=== PATIENT | male | born 1985 | race Caucasian/White ===

== ENCOUNTER 2017-08-07 00:21 | Inpatient (IN) | payer MEDICAID ==
[~2017-08-07] VITALS: Ht 177.8 cm; Wt 83.7 kg
[2017-08-07 03:51] VITALS: BP 119/74
[2017-08-07] MEDS ORDERED: INFLUENZA VIRUS VACCINE QVS 2017-18 (3YR+)/PF 60 MCG/0.5 ML SYRINGE IM ONE (04:30)
[2017-08-07 08:39] LABS: BASOPHILS % (AUTO) 0.5 % (0.0-2.0); EOSINOPHILS % (AUTO) 1.1 % (1.0-6.0); HEMATOCRIT 38.4 % (41-53); HEMOGLOBIN 13.2 g/dL (13.5-17.5); LYMPHOCYTES # (AUTO) 2.2 K/uL (1.0-4.8); MEAN CORPUSCULAR HEMOGLOBIN 30.2 pg (26.0-34.0); MEAN CORPUSCULAR HGB CONC 34.3 G/dL (31.0-37.0); MEAN CORPUSCULAR VOLUME 88 fL (80-100); MONOCYTES # (AUTO) 0.5 K/uL (0.1-1.0); MONOCYTES % (AUTO) 7.6 % (2.0-9.0); NEUTROPHILS # (AUTO) 3.2 K/uL (1.8-7.7); NEUTROPHILS % (AUTO) 53.8 % (40.0-70.0); PLATELET COUNT (AUTO) 160 K/uL (150-450); RED BLOOD CELL COUNT(AUTO) 4.37 MIL/uL (4.50-5.90); WHITE BLOOD COUNT (AUTO) 5.9 K/uL (4.5-11.0)
[2017-08-07 08:56] VITALS: BP 108/48
[2017-08-07 09:32] LABS: ALANINE AMINOTRANSFERASE 29 U/L (12-78); ALBUMIN 3.5 g/dL (3.4-5.0); ANION GAP 6 mmol/L (8-16); ASPARTATE AMINOTRANSFERASE 25 U/L (15-37); BILIRUBIN,TOTAL 0.5 mg/dL (0.1-1.0); CALCIUM, TOTAL 8.8 mg/dL (8.8-10.5); CARBON DIOXIDE 29 mmol/L (22-29); CHLORIDE 104 mmol/L (98-107); CHOL/HDL RATIO 2.4 (4.2-7.3); CREATININE 0.83 mg/dL (0.60-1.30); GLOMERULAR FILTR. RATE CALC > 60 mL/min (>60); POTASSIUM 3.6 mmol/L (3.5-5.1); SODIUM SERUM 139 mmol/L (136-145); THYROID STIMULATING HORMONE 1.34 uIU/mL (0.36-3.74); TOTAL PROTEIN, SERUM 6.4 g/dL (6.4-8.2); UREA NITROGEN, BLOOD 18 mg/dL (7-18)
[2017-08-07 16:03] VITALS: BP 111/64
[2017-08-07] MEDS: HALOPERIDOL 5 MG TABLET PO PRN (16:06)
[2017-08-07] MEDS: PERPHENAZINE 4 MG TABLET PO SCH (16:06)
[2017-08-07] MEDS: DIVALPROEX SODIUM 500 MG DR TABLET PO SCH (16:06)
[2017-08-08 01:00] VITALS: BP 119/69
[2017-08-08 08:27] VITALS: BP 111/67
[2017-08-08] MEDS: PERPHENAZINE 4 MG TABLET PO SCH ×2 (08:31→16:02)
[2017-08-08] MEDS: DIVALPROEX SODIUM 500 MG DR TABLET PO SCH ×2 (08:32→16:02)
[2017-08-08] MEDS: SERTRALINE HCL 50 MG TABLET PO SCH (08:32)
[2017-08-08] MEDS: LORazepam 1 MG TABLET PO PRN (08:32)
[2017-08-08] MEDS: HALOPERIDOL 5 MG TABLET PO PRN ×2 (12:25→16:26)
[2017-08-08 16:27] VITALS: BP 111/72
[2017-08-09 00:53] VITALS: BP 130/65
[2017-08-09 08:07] VITALS: BP 107/60
[2017-08-09] MEDS: SERTRALINE HCL 50 MG TABLET PO SCH (08:34)
[2017-08-09] MEDS: PERPHENAZINE 4 MG TABLET PO SCH ×2 (08:34→16:31)
[2017-08-09] MEDS: DIVALPROEX SODIUM 500 MG DR TABLET PO SCH ×2 (08:34→16:31)
[2017-08-09] MEDS: HALOPERIDOL 5 MG TABLET PO PRN (14:47)
[2017-08-09 16:01] VITALS: BP 101/61
[2017-08-09] MEDS: LORazepam 1 MG TABLET PO PRN (21:19)
[2017-08-10 01:45] VITALS: BP 113/67
[2017-08-10] MEDS: PERPHENAZINE 4 MG TABLET PO SCH ×2 (08:17→16:02)
[2017-08-10] MEDS: DIVALPROEX SODIUM 500 MG DR TABLET PO SCH ×2 (08:17→16:02)
[2017-08-10] MEDS: SERTRALINE HCL 50 MG TABLET PO SCH (08:17)
[2017-08-10 08:29] VITALS: BP 116/60
[2017-08-10] MEDS: LORazepam 1 MG TABLET PO PRN ×2 (08:29→14:42)
[2017-08-10 16:30] VITALS: BP 115/71
[2017-08-10] MEDS: ZOLPIDEM TARTRATE 10 MG TABLET PO PRN (20:30)
[2017-08-10] MEDS: HALOPERIDOL 5 MG TABLET PO PRN (21:48)
[2017-08-11 00:39] VITALS: BP 112/72
[2017-08-11 08:19] VITALS: BP 114/68
[2017-08-11] MEDS: PERPHENAZINE 4 MG TABLET PO SCH ×2 (08:41→16:16)
[2017-08-11] MEDS: SERTRALINE HCL 50 MG TABLET PO SCH (08:41)
[2017-08-11] MEDS: DIVALPROEX SODIUM 500 MG DR TABLET PO SCH ×2 (08:41→16:16)
[2017-08-11] MEDS ORDERED: CloNIDine HCL 0.1 MG TABLET PO PRN (09:15)
[2017-08-11] MEDS ORDERED: MAG HYDROX/AL HYDROX/SIMETH ES 30 ML SUSPENSION UDCUP PO PRN (09:15)
[2017-08-11] MEDS ORDERED: ONDANSETRON HCL 4 MG TABLET PO PRN (09:15)
[2017-08-11] MEDS ORDERED: MAGNESIUM HYDROXIDE SUSPENSION 30 ML UDCUP PO PRN (09:15)
[2017-08-11] MEDS ORDERED: BACITRACIN 28.4 GM OINTMENT TP PRN (09:15)
[2017-08-11] MEDS ORDERED: LOPERAMIDE HCL 2 MG CAPSULE PO PRN (09:15)
[2017-08-11] MEDS ORDERED: ALBUTEROL SULFATE HFA 90 MCG/PUFF 8 GM INHALER IH PRN (09:15)
[2017-08-11] MEDS ORDERED: ACETAMINOPHEN 325 MG TABLET PO PRN (09:15)
[2017-08-11] MEDS ORDERED: IBUPROFEN 600 MG TABLET PO PRN (09:15)
[2017-08-11] MEDS ORDERED: BENZOCAINE/MENTHOL LOZENGE MM PRN (09:15)
[2017-08-11] MEDS ORDERED: PETROLATUM,WHITE 71 GM JELLY TP PRN (09:15)
[2017-08-11] MEDS: HALOPERIDOL 5 MG TABLET PO PRN ×2 (09:28→16:16)
[2017-08-11] MEDS: LORazepam 1 MG TABLET PO PRN (14:55)
[2017-08-11 16:25] VITALS: BP 115/64
[2017-08-12 00:01] VITALS: BP 101/66
[2017-08-12] MEDS ORDERED: HYPROMELLOSE 0.5% 15 ML OPHTHALMIC SOLUTION OU PRN (07:30)
[2017-08-12] MEDS: PERPHENAZINE 4 MG TABLET PO SCH ×2 (08:06→17:04)
[2017-08-12] MEDS: SERTRALINE HCL 50 MG TABLET PO SCH (08:06)
[2017-08-12] MEDS: DIVALPROEX SODIUM 500 MG DR TABLET PO SCH ×2 (08:06→17:04)
[2017-08-12 08:25] VITALS: BP 115/72
[2017-08-12] MEDS: LORazepam 1 MG TABLET PO PRN ×2 (11:38→20:06)
[2017-08-12 16:05] VITALS: BP 121/75
[2017-08-12] MEDS: HALOPERIDOL 5 MG TABLET PO PRN (20:09)
[2017-08-13 01:31] VITALS: BP 122/71
[2017-08-13 08:08] VITALS: BP 127/67
[2017-08-13] MEDS: DIVALPROEX SODIUM 500 MG DR TABLET PO SCH ×2 (08:50→16:13)
[2017-08-13] MEDS: SERTRALINE HCL 50 MG TABLET PO SCH (08:51)
[2017-08-13] MEDS: PERPHENAZINE 4 MG TABLET PO SCH ×2 (08:51→16:13)
[2017-08-13] MEDS: LORazepam 1 MG TABLET PO PRN (16:13)
[2017-08-13 16:32] VITALS: BP 105/59
[2017-08-13] MEDS: HALOPERIDOL 5 MG TABLET PO PRN (17:37)
[2017-08-13] MEDS: ZOLPIDEM TARTRATE 10 MG TABLET PO PRN (20:24)
[2017-08-14 00:01] VITALS: BP 104/62
[2017-08-14 08:01] VITALS: BP 110/66
[2017-08-14] MEDS: PERPHENAZINE 8 MG TABLET PO SCH ×2 (08:19→16:56)
[2017-08-14] MEDS: SERTRALINE HCL 50 MG TABLET PO SCH (08:19)
[2017-08-14] MEDS: DIVALPROEX SODIUM 500 MG DR TABLET PO SCH ×2 (08:19→16:57)
[2017-08-14 16:39] VITALS: BP 139/64
[2017-08-14] MEDS: HALOPERIDOL 5 MG TABLET PO PRN (18:39)
[2017-08-15 00:41] VITALS: BP 109/62
[2017-08-15] MEDS: ZOLPIDEM TARTRATE 10 MG TABLET PO PRN (00:44)
[2017-08-15] MEDS: SERTRALINE HCL 50 MG TABLET PO SCH (08:08)
[2017-08-15] MEDS: PERPHENAZINE 8 MG TABLET PO SCH ×2 (08:08→16:52)
[2017-08-15] MEDS: DIVALPROEX SODIUM 500 MG DR TABLET PO SCH ×2 (08:08→16:51)
[2017-08-15 08:11] VITALS: BP 111/63
[2017-08-15] MEDS ORDERED: TRIL8 PO (15:18)
[2017-08-15] MEDS ORDERED: SERT50TA12 PO (15:18)
[2017-08-15] MEDS ORDERED: DIVA500T35 PO (15:19)
[2017-08-15 16:07] VITALS: BP 98/60
== END 2017-08-15 18:50 | disposition home or self-care (01) | DRG 750 ==
LOC: EDSTATUS 00:30 → EDBD 02:44 → B2S 02:44
PROVIDERS: ADMIT Psychiatry & Neurology Psychiatry; ATTEND Psychiatry & Neurology Psychiatry
DX: F20.0 Paranoid schizophrenia (principal); R45.851 Suicidal ideations; G47.00 Insomnia, unspecified; D64.9 Anemia, unspecified; Z72.89 Other problems related to lifestyle; Z71.41 Alcohol abuse counseling and surveillance of alcoholic
CPT/HCPCS: 84439; 84443; 90471; 99285

== ENCOUNTER 2017-08-24 19:37 | Inpatient (IN) | payer SELFPAY ==
[~2017-08-24] VITALS: Ht 177.8 cm; Wt 91.2 kg
[~2017-08-24 19:37] MED LIST: DIVA500T35 PO; SERT50TA12 PO; TRIL8 PO
[2017-08-24] MEDS ORDERED: OLAN10TA3 PO (20:06)
[2017-08-24 21:04] LABS: BASOPHILS % (AUTO) 0.7 % (0.0-2.0); EOSINOPHILS % (AUTO) 1.7 % (1.0-6.0); HEMATOCRIT 41.9 % (41-53); HEMOGLOBIN 14.3 g/dL (13.5-17.5); LYMPHOCYTES # (AUTO) 2.5 K/uL (1.0-4.8); LYMPHOCYTES % (AUTO) 34.1 % (22.0-44.0); MEAN CORPUSCULAR HEMOGLOBIN 29.8 pg (26.0-34.0); MEAN CORPUSCULAR HGB CONC 34.1 G/dL (31.0-37.0); MEAN CORPUSCULAR VOLUME 88 fL (80-100); MONOCYTES # (AUTO) 0.5 K/uL (0.1-1.0); MONOCYTES % (AUTO) 7.1 % (2.0-9.0); NEUTROPHILS # (AUTO) 4.1 K/uL (1.8-7.7); NEUTROPHILS % (AUTO) 56.4 % (40.0-70.0); PLATELET COUNT (AUTO) 175 K/uL (150-450); RED BLOOD CELL COUNT(AUTO) 4.78 MIL/uL (4.50-5.90); RED CELL DISTRIBUTION WIDTH 14.2 % (11.5-14.5); WHITE BLOOD COUNT (AUTO) 7.3 K/uL (4.5-11.0)
[2017-08-24] MEDS ORDERED: DiphenhydrAMINE HCL 25 MG CAPSULE PO ONE (21:15)
[2017-08-24] MEDS ORDERED: OLANZapine 5 MG TABLET PO ONE (21:15)
[2017-08-24] MEDS ORDERED: LORazepam 2 MG TABLET PO ONE (21:15)
[2017-08-24] MEDS ORDERED: ACETAMINOPHEN 500 MG TABLET PO ONE (21:15)
[2017-08-24 21:25] LABS: ANION GAP 11 mmol/L (8-16); CARBON DIOXIDE 28 mmol/L (22-29); CHLORIDE 105 mmol/L (98-107); CREATININE 1.06 mg/dL (0.60-1.30); GLOMERULAR FILTR. RATE CALC > 60 mL/min (>60); POTASSIUM 4.1 mmol/L (3.5-5.1); SODIUM SERUM 144 mmol/L (136-145); UREA NITROGEN, BLOOD 20 mg/dL (7-18)
[2017-08-24 21:28] LABS: ALANINE AMINOTRANSFERASE 21 U/L (12-78); ALBUMIN 4.3 g/dL (3.4-5.0); ASPARTATE AMINOTRANSFERASE 18 U/L (15-37); BILIRUBIN,TOTAL 0.3 mg/dL (0.1-1.0); TOTAL PROTEIN, SERUM 7.8 g/dL (6.4-8.2)
[2017-08-25 01:31] LABS: ADD UA MICROSCOPIC NO; APPEARANCE,URINE CLEAR (CLEAR); GLUCOSE, URINE (UA) NEGATIVE (NEGATIVE); KETONES,URINE NEGATIVE (NEGATIVE); LEUKOCYTE ESTERASE ,URINE NEGATIVE (NEGATIVE); OCCULT BLOOD,URINE NEGATIVE (NEGATIVE); PH,URINE 6.5 (5.0-8.0); PROTEIN,URINE NEGATIVE (NEGATIVE)
[2017-08-25 01:50] LABS: CHOL/HDL RATIO 2.5 (4.2-7.3); THYROID STIMULATING HORMONE 2.79 uIU/mL (0.36-3.74)
[2017-08-25 08:14] VITALS: BP 120/61
[2017-08-25 08:42] VITALS: BP 122/81
[2017-08-25] MEDS ORDERED: ALBUTEROL SULFATE HFA 90 MCG/PUFF 8 GM INHALER IH PRN (08:45)
[2017-08-25] MEDS ORDERED: BACITRACIN 28.4 GM OINTMENT TP PRN (08:45)
[2017-08-25] MEDS ORDERED: ONDANSETRON HCL 4 MG TABLET PO PRN (08:45)
[2017-08-25] MEDS ORDERED: LOPERAMIDE HCL 2 MG CAPSULE PO PRN (08:45)
[2017-08-25] MEDS ORDERED: MAG HYDROX/AL HYDROX/SIMETH ES 30 ML SUSPENSION UDCUP PO PRN (08:45)
[2017-08-25] MEDS ORDERED: ACETAMINOPHEN 325 MG TABLET PO PRN (08:45)
[2017-08-25] MEDS ORDERED: BENZOCAINE/MENTHOL LOZENGE [8 LOZENGES/PACKET] MM PRN (08:45)
[2017-08-25] MEDS ORDERED: IBUPROFEN 600 MG TABLET PO PRN (08:45)
[2017-08-25] MEDS ORDERED: PETROLATUM,WHITE 71 GM JELLY TP PRN (08:45)
[2017-08-25] MEDS ORDERED: CloNIDine HCL 0.1 MG TABLET PO PRN (08:45)
[2017-08-25] MEDS ORDERED: MAGNESIUM HYDROXIDE SUSPENSION 30 ML UDCUP PO PRN (08:45)
[2017-08-25] MEDS ORDERED: INFLUENZA VIRUS VACCINE QVS 2017-18 (3YR+)/PF 60 MCG/0.5 ML SYRINGE IM ONE (09:15)
[2017-08-25 16:19] VITALS: BP 117/65
[2017-08-25] MEDS: LORazepam 2 MG TABLET PO PRN ×2 (18:28→23:02)
[2017-08-25] MEDS: ZOLPIDEM TARTRATE 10 MG TABLET PO PRN (21:10)
[2017-08-25] MEDS: HALOPERIDOL 5 MG TABLET PO PRN (23:02)
[2017-08-26 04:35] VITALS: BP 110/78
[2017-08-26 08:10] VITALS: BP 115/68
[2017-08-26] MEDS: LORazepam 2 MG TABLET PO PRN ×3 (08:58→20:27)
[2017-08-26] MEDS: SERTRALINE HCL 50 MG TABLET PO SCH (09:36)
[2017-08-26] MEDS: PERPHENAZINE 8 MG TABLET PO SCH ×2 (09:36→16:43)
[2017-08-26] MEDS: DIVALPROEX SODIUM 500 MG DR TABLET PO SCH ×2 (09:36→16:43)
[2017-08-26 16:13] VITALS: BP 127/68
[2017-08-26] MEDS: ZOLPIDEM TARTRATE 10 MG TABLET PO PRN (20:27)
[2017-08-27 04:40] VITALS: BP 111/64
[2017-08-27] MEDS: LORazepam 2 MG TABLET PO PRN ×2 (04:42→16:17)
[2017-08-27] MEDS: DIVALPROEX SODIUM 500 MG DR TABLET PO SCH ×2 (08:23→16:10)
[2017-08-27] MEDS: PERPHENAZINE 8 MG TABLET PO SCH ×2 (08:23→16:10)
[2017-08-27] MEDS: SERTRALINE HCL 50 MG TABLET PO SCH (08:27)
[2017-08-27 09:14] VITALS: BP 122/65
[2017-08-27 16:10] VITALS: BP 111/72
[2017-08-27] MEDS: ZOLPIDEM TARTRATE 10 MG TABLET PO PRN (21:26)
[2017-08-28 01:05] VITALS: BP 112/69
[2017-08-28] MEDS: LORazepam 2 MG TABLET PO PRN ×3 (01:08→12:24)
[2017-08-28] MEDS: SERTRALINE HCL 50 MG TABLET PO SCH (08:06)
[2017-08-28] MEDS: DIVALPROEX SODIUM 500 MG DR TABLET PO SCH ×2 (08:06→17:35)
[2017-08-28] MEDS: PERPHENAZINE 8 MG TABLET PO SCH ×2 (08:06→17:35)
[2017-08-28 08:36] VITALS: BP 122/76
[2017-08-28 16:35] VITALS: BP 123/71
[2017-08-28] MEDS: HALOPERIDOL 5 MG TABLET PO PRN ×2 (18:56→23:02)
[2017-08-28] MEDS: ZOLPIDEM TARTRATE 10 MG TABLET PO PRN (22:28)
[2017-08-29 06:21] VITALS: BP 108/72
[2017-08-29] MEDS: SERTRALINE HCL 50 MG TABLET PO SCH (08:35)
[2017-08-29] MEDS: DIVALPROEX SODIUM 500 MG DR TABLET PO SCH ×2 (08:35→16:09)
[2017-08-29] MEDS: PERPHENAZINE 8 MG TABLET PO SCH ×3 (08:35→16:08)
[2017-08-29 08:40] VITALS: BP 103/67
[2017-08-29] MEDS ORDERED: SERTRALINE HCL 50 MG TABLET PO ONE (09:00)
[2017-08-29] MEDS ORDERED: PERPHENAZINE 8 MG TABLET PO SCH (09:00)
[2017-08-29] MEDS ORDERED: SERTRALINE HCL 50 MG TABLET PO SCH (09:00)
[2017-08-29 16:16] VITALS: BP 126/77
[2017-08-29] MEDS: HALOPERIDOL 5 MG TABLET PO PRN (17:40)
[2017-08-29] MEDS: ZOLPIDEM TARTRATE 10 MG TABLET PO PRN (20:17)
[2017-08-30 00:02] VITALS: BP 107/75
[2017-08-30] MEDS: LORazepam 2 MG TABLET PO PRN ×2 (05:44→17:13)
[2017-08-30 08:23] VITALS: BP 126/65
[2017-08-30] MEDS: DIVALPROEX SODIUM 500 MG DR TABLET PO SCH ×2 (09:13→16:44)
[2017-08-30] MEDS: PERPHENAZINE 8 MG TABLET PO SCH ×3 (09:14→16:45)
[2017-08-30] MEDS: SERTRALINE HCL 50 MG TABLET PO SCH (09:14)
[2017-08-30 16:06] VITALS: BP 124/73
[2017-08-30] MEDS: HALOPERIDOL 5 MG TABLET PO PRN (17:13)
[2017-08-30] MEDS: ZOLPIDEM TARTRATE 10 MG TABLET PO PRN (21:18)
[2017-08-31 04:18] VITALS: BP 113/75
[2017-08-31] MEDS: SERTRALINE HCL 50 MG TABLET PO SCH (08:20)
[2017-08-31] MEDS: DIVALPROEX SODIUM 500 MG DR TABLET PO SCH ×2 (08:20→16:06)
[2017-08-31] MEDS: PERPHENAZINE 8 MG TABLET PO SCH ×3 (08:20→16:06)
[2017-08-31 08:26] VITALS: BP 130/77
[2017-08-31 16:09] VITALS: BP 118/65
[2017-08-31] MEDS: LORazepam 2 MG TABLET PO PRN (18:35)
[2017-08-31] MEDS: ZOLPIDEM TARTRATE 10 MG TABLET PO PRN (20:26)
[2017-09-01 05:33] VITALS: BP 118/65
[2017-09-01 08:03] VITALS: BP 128/70
[2017-09-01] MEDS: DIVALPROEX SODIUM 500 MG DR TABLET PO SCH (08:09)
[2017-09-01] MEDS: PERPHENAZINE 8 MG TABLET PO SCH ×2 (08:09→12:37)
[2017-09-01] MEDS: SERTRALINE HCL 50 MG TABLET PO SCH (08:09)
[2017-09-01] MEDS ORDERED: DIVA250T4 PO (21:58)
== END 2017-09-01 13:35 | disposition home or self-care (01) | DRG 885 ==
LOC: EMS 19:39 → AHU 08-25 07:24 → B2S 08-25 14:57
PROVIDERS: ADMIT Psychiatry & Neurology Psychiatry; ATTEND Psychiatry & Neurology Psychiatry
DX: F25.1 Schizoaffective disorder, depressive type (principal); R45.851 Suicidal ideations; Z28.21 Immunization not carried out because of patient refusal; F41.9 Anxiety disorder, unspecified; G47.00 Insomnia, unspecified; K59.00 Constipation, unspecified; Z79.899 Other long term (current) drug therapy; R51 Headache; Z56.0 Unemployment, unspecified; F10.21 Alcohol dependence, in remission
CPT/HCPCS: 84443; 87081; 99285; G0480